=== PATIENT | male | born 2000 | race Caucasian/White ===

== ENCOUNTER 2025-02-28 02:52 | Emergency (ER) | payer MEDICAID ==
[~2025-02-28] VITALS: Ht 185.4 cm; Wt 91.0 kg
[2025-02-28 02:56] VITALS: TEMP 97.1
[2025-02-28] MEDS: ondansetron 4mg rapidly disintigrating tab PO ONE (03:27)
[2025-02-28 06:35] VITALS: BP 143/85; PULSE 98; RESP 16; O2SAT 97
== END 2025-02-28 06:41 | disposition home or self-care (01) ==
LOC: ER 02:53
DX: F10.129 Alcohol abuse with intoxication, unspecified (principal); Y90.9 Presence of alcohol in blood, level not specified
CPT/HCPCS: 99283